=== PATIENT | female | born 1945 | race American Indian/Alaskan Native ===

== ENCOUNTER 2017-04-23 12:56 | Outpatient (CLI) | payer OTHER | END 2017-04-23 13:04 | disposition home or self-care (01) | LOC: SONOGRAMA 12:56 | DX: M76.72 Peroneal tendinitis, left leg (principal) ==

== ENCOUNTER 2017-05-09 09:31 | Outpatient (CLI) | payer OTHER | END 2017-05-09 09:38 | disposition home or self-care (01) | LOC: LAB 09:31 | DX: E88.09 Other disorders of plasma-protein metabolism, not elsewhere classified (principal) ==

== ENCOUNTER → 2020-07-26 | Outpatient (CLI) | payer OTHER | END | disposition home or self-care (01) | LOC: MAMO-SONO 06-27 08:45 | PROVIDERS: ATTEND Internal Medicine | DX: N60.11 Diffuse cystic mastopathy of right breast (principal); Z12.31 Encounter for screening mammogram for malignant neoplasm of breast; N60.12 Diffuse cystic mastopathy of left breast ==

== ENCOUNTER 2021-08-15 06:40 | Outpatient (CLI) | payer OTHER | END 2021-08-15 07:20 | disposition home or self-care (01) | LOC: MAMO-SONO 06:40 | PROVIDERS: ATTEND Internal Medicine | DX: N60.11 Diffuse cystic mastopathy of right breast (principal); N60.12 Diffuse cystic mastopathy of left breast ==

== ENCOUNTER → 2022-03-07 | Emergency (ER) | payer OTHER ==
[~2022-03-07] VITALS: Ht 165.1 cm; Wt 66.2 kg
[~2022-03-07] MED LIST: ATENOLOL25 MG PO; CIPRO500 MG PO; KETO10TA2 PO; LIPITOR20 MG PO; ONDANSETRON ODT8 MG PO; TAMS0.4C PO
== END | disposition home or self-care (01) ==
LOC: ER 17:23
DX: R10.9 Unspecified abdominal pain (principal); Z20.822 Contact with and (suspected) exposure to COVID-19

== ENCOUNTER 2022-03-19 07:01 | Outpatient (CLI) | payer OTHER | END 2022-03-19 07:35 | disposition home or self-care (01) | LOC: TOM 07:01 | PROVIDERS: ATTEND Urology | DX: N20.1 Calculus of ureter (principal) ==

== ENCOUNTER 2022-04-24 06:39 | Outpatient (CLI) | payer OTHER | END 2022-04-24 07:00 | disposition home or self-care (01) | LOC: TOM 06:39 | PROVIDERS: ATTEND Urology | DX: N20.1 Calculus of ureter (principal) ==

== ENCOUNTER → 2022-06-12 | Outpatient (CLI) | payer OTHER | END | disposition home or self-care (01) | LOC: TOM 07:01 | PROVIDERS: ATTEND Urology | DX: N20.1 Calculus of ureter (principal) ==

== ENCOUNTER 2022-07-12 05:20 | Day surgery (SDC) | payer OTHER ==
[~2022-07-12] VITALS: Ht 165.1 cm; Wt 65.3 kg
== END 2022-07-12 10:45 | disposition home or self-care (01) ==
LOC: CIR.AMB 05:20
PROVIDERS: ATTEND Urology
DX: N20.1 Calculus of ureter (principal); Z20.822 Contact with and (suspected) exposure to COVID-19; E78.5 Hyperlipidemia, unspecified

== ENCOUNTER → 2023-04-25 | Outpatient (CLI) | payer OTHER | END | disposition home or self-care (01) | LOC: MAMO-SONO 08:04 | PROVIDERS: ATTEND Internal Medicine | DX: N60.11 Diffuse cystic mastopathy of right breast (principal); N60.12 Diffuse cystic mastopathy of left breast ==

== ENCOUNTER 2023-10-28 07:56 | Outpatient (CLI) | payer OTHER ==
[~2023-10-28 07:56] MED LIST changes: +CEFADROXIL500 MG PO; +SIMVASTATIN20 MG PO
== END 2023-10-28 08:05 | disposition home or self-care (01) ==
LOC: MRI 07:56
PROVIDERS: ATTEND Anesthesiology Pain Medicine
DX: M79.89 Other specified soft tissue disorders (principal); M51.26 Other intervertebral disc displacement, lumbar region
CPT/HCPCS: 72149; Q9965

== ENCOUNTER 2024-11-10 07:49 | Outpatient (CLI) | payer OTHER | END 2024-11-10 08:10 | disposition home or self-care (01) | LOC: MAMO-SONO 07:49 | PROVIDERS: ATTEND Internal Medicine | DX: N60.11 Diffuse cystic mastopathy of right breast (principal); N60.12 Diffuse cystic mastopathy of left breast; Z12.31 Encounter for screening mammogram for malignant neoplasm of breast ==